=== PATIENT | female | born 1955 ===

== ENCOUNTER 2018-02-05 18:11 | Emergency (ER) | payer OTHER ==
[~2018-02-05] VITALS: Ht 157.5 cm; Wt 69.5 kg
[2018-02-05 18:23] VITALS: TEMP 37; Ht 157.5 cm; Wt 69.5 kg
[2018-02-05] MEDS ORDERED: CLONAZEPAM 0.5 MG TAB PO STA (18:30)
[2018-02-05] MEDS ORDERED: AMLODIPINE BESYLATE 5 MG TAB PO ONE (18:30)
--- NOTE | 2018-02-05 18:35 | EMERGENCY ROOM VISIT NOTE ---
History Report prepared by Imelda: Sybil Ferraro Under the Supervision of: Dr. Magaly Xiong D.O. First contact with patient: 18:16 Stated Complaint: ALCOHOL History of Present Illness The patient is a 63 year old female who presents to the Emergency Room with complaints of worsening anxiety that started several hours ago. The patient reports she was getting on a bus to [employer] for her daughter's graduation and she felt her anxiety start to come on. She states she has a history of anxiety and depression and is on medications. The patient notes she also takes blood pressure medication. She states she did not take her anxiety or blood pressure medication before leaving her house this morning. She states she did not have a racing heart or palpitation while she was having anxiety. She notes she has been on blood pressure medication for several years now. The patient reports she drank alcohol to try and calm her anxiety. She notes she is dizzy and light headed. She reports she did not fall, black out, or pass out. She states she just got over a cold. She denies a history of CHF. The patient notes she has a kidney stone but does not have kidney failure. Pt denies headache, change in vision, fevers, chest pain, shortness of breath, nausea, vomiting, diarrhea, pain with urination, and melena. Source of History: patient Onset: several hours ago Position: other (global) Timing: worsening Associated Symptoms: No fevers, No headache, No chest pain, No SOB, No nausea, No vomiting, No melena, No diarrhea, No urinary symptoms Note: Dizzy, light headed. Review of Systems See HPI for pertinent positives & negatives. A total of 10 systems reviewed and were otherwise negative. Past Medical & Surgical Hypertension, anxiety, depression, kidney stone. Family History FHx: hypertension Social History Alcohol Use: occasionally Housing Status: lives with family Current/Historical Medications Scheduled Amlodipine (Norvasc), Unknown Dose PO DAILY Valsartan (Diovan), Unknown Dose PO DAILY Zolpidem Tartrate (Ambien), 5 MG PO HS Scheduled PRN Clonazepam (Klonopin), 0.5 MG PO DIRECTED PRN for Anxiety Dicyclomine Hcl (Dicyclomine Hcl), 20 MG PO Q6H PRN for STOMACH PAIN Allergies Coded Allergies: Cimetidine (Unverified Allergy, Unknown, UNKNOWN, 02/05/18) Orlistat (Unverified Allergy, Unknown, UNKNOWN, 02/05/18) Physical Exam Vital Signs Date Time Temp Pulse Resp B/P (MAP) Pulse Ox O2 Delivery O2 Flow Rate FiO2 02/05/18 19:24 78 20 146/104 98 Room Air 02/05/18 18:23 37.0 82 18 150/99 97 Room Air 174/113 Physical Exam GENERAL: alert, anxious appear, tearful, well nourished. EYE EXAM: normal conjunctiva, PERRL and EOM's grossly intact OROPHARYNX: no exudate, no erythema, lips, buccal mucosa, and tongue normal and mucous membranes are moist NECK: supple, no nuchal rigidity, no adenopathy, non-tender LUNGS: Clear to auscultation. Normal chest wall mechanics HEART: no murmurs, S1 normal and S2 normal ABDOMEN: abdomen soft, non-tender, normo-active bowel sounds, no masses, no rebound or guarding. BACK: Back is symmetrical on inspection and there is no deformity, no midline tenderness, no CVA tenderness. SKIN: no rashes and no bruising UPPER EXTREMITIES: upper extremities are grossly normal. LOWER EXTREMITIES: No pitting edema. NEURO EXAM: Normal sensorium, cranial nerves II-XII [grossly] intact, normal speech, no [gross] weakness of arms, no [gross] weakness of legs. Difficulty with finger to nose bilaterally. Medical Decision & Procedures Laboratory Results 02/05/18 16:40 Red Blood Count 4.47, Mean Corpuscular Volume 89.7, Mean Corpuscular Hemoglobin 31.8, Mean Corpuscular Hemoglobin Concent 35.4, Mean Platelet Volume 8.8, Neutrophils (%) (Auto) 65.3, Lymphocytes (%) (Auto) 29.4, Monocytes (%) (Auto) 4.4, Eosinophils (%) (Auto) 0.0, Basophils (%) (Auto) 0.6, Neutrophils # (Auto) 4.15, Lymphocytes # (Auto) 1.87, Monocytes # (Auto) 0.28, Eosinophils # (Auto) 0.00, Basophils # (Auto) 0.04 02/05/18 16:40 Test 02/05/18 16:40 White Blood Count 6.36 K/uL (4.8-10.8) Red Blood Count 4.47 M/uL (4.2-5.4) Hemoglobin 14.2 g/dL (12.0-16.0) Hematocrit 40.1 % (37-47) Mean Corpuscular Volume 89.7 fL (80-100) Mean Corpuscular Hemoglobin 31.8 pg (25-34) Mean Corpuscular Hemoglobin Concent 35.4 g/dl (32-36) Platelet Count 311 K/uL (130-400) Mean Platelet Volume 8.8 fL (7.4-10.4) Neutrophils (%) (Auto) 65.3 % Lymphocytes (%) (Auto) 29.4 % Monocytes (%) (Auto) 4.4 % Eosinophils (%) (Auto) 0.0 % Basophils (%) (Auto) 0.6 % Neutrophils # (Auto) 4.15 K/uL (1.4-6.5) Lymphocytes # (Auto) 1.87 K/uL (1.2-3.4) Monocytes # (Auto) 0.28 K/uL (0.11-0.59) Eosinophils # (Auto) 0.00 K/uL (0-0.5) Basophils # (Auto) 0.04 K/uL (0-0.2) RDW Standard Deviation 42.5 fL (36.4-46.3) RDW Coefficient of Variation 13.0 % (11.5-14.5) Immature Granulocyte % (Auto) 0.3 % Immature Granulocyte # (Auto) 0.02 K/uL (0.00-0.02) Anion Gap 5.0 mmol/L (3-11) Est Creatinine Clear Calc Drug Dose 49.8 ml/min Estimated GFR () 64.4 Estimated GFR (Non- 55.6 BUN/Creatinine Ratio 15.2 (10-20) Calcium Level 9.2 mg/dl (8.5-10.1) Magnesium Level 2.4 mg/dl (1.8-2.4) Total Bilirubin 0.4 mg/dl (0.2-1) Aspartate Amino Transf (AST/SGOT) 16 U/L (15-37) Alanine Aminotransferase (ALT/SGPT) 19 U/L (12-78) Alkaline Phosphatase 121 U/L (45-117) Total Protein 8.7 gm/dl (6.4-8.2) Albumin 4.4 gm/dl (3.4-5.0) Globulin 4.3 gm/dl (2.5-4.0) Albumin/Globulin Ratio 1.0 (0.9-2) Ethyl Alcohol mg/dL 224.0 mg/dl (0-3) Laboratory results per my review. Medications Administered Medications (Trade) Dose Ordered Sig/Mimi Route Start Time Stop Time Status Last Admin Dose Admin Amlodipine Besylate (Norvasc Tab) 5 mg NOW ONCE PO 02/05/18 18:30 02/05/18 18:31 DC 02/05/18 18:46 5 MG Clonazepam (Klonopin Tab) 0.5 mg NOW STAT PO 02/05/18 18:30 02/05/18 18:31 DC 02/05/18 18:46 0.5 MG ECG Per My Interpretation Indication: other (hypertension) Rate (beats per minute): 73 Rhythm: normal sinus Findings: no acute ischemic change, no ectopy, other (isolated inverted t wave in lead 3) ED Course 1815: The patient was evaluated in room A4B. A complete history and physical exam was performed. 1829: Klonopin Tab 0.5 mg PO, Norvasc Tab 5 mg PO. 1927: I rechecked the patient and her blood pressure has gone down. She states she feels better. The patient will be discharged home. Medical Decision Differential diagnosis: Etiologies such as toxicologic, infection, hypoglycemia, electrolyte abnormalities, cardiac sources, intracerebral event, neurologic, as well as others were entertained. Patient anxious appearing here, initially very hypertensive but this improved spontaneously even prior to administration of medications. Patient given 2 of her home vacations that she normally would have taken. Patient found to be intoxicated. By time of discharge was clinically sober, ambulate with a steady gait, no slurred speech. Patient concerned about making her best to get back to [place] where she lives. Discussed with patient need for compliance in taking her medications at all times. Discussed not using alcohol as a coping strategy when you miss her medications or her having an anxiety attack. Patient denies SI. Patient's blood pressure continue to improve and patient felt well after taking her usual home medications. Patient's anxiety was improved and she was no longer tearful. Patient's son was with her throughout and is accompanying her home on the bus trip back to [place]. Discussed with her close follow-up with her family doctor as a precaution, symptoms to watch and return for, patient and son verbalized understanding were agreeable with plan. I do not suspect hypertensive urgency/emergency, ACS, CVA, dissection, occult infectious etiology, nephrotic syndrome. Patient here initially with hypertension more likely from missing her usual medications as well as her anxiety. Medication Reconcilliation Current Medication List: was personally reviewed by me Blood Pressure Screening Patient's blood pressure: Elevated blood pressure Blood pressure disposition: Referred to PCP Impression Primary Impression: Anxiety Additional Impressions: Hypertension Alcohol intoxication Scribe Attestation The scribe's documentation has been prepared under my direction and personally reviewed by me in its entirety. I confirm that the note above accurately reflects all work, treatment, procedures, and medical decision making performed by me. Departure Information Dispostion Home / Self-Care Additional Instructions Please take your medications as prescribed. Please drink alcohol cautiously as it may contribute to other reactions or interactions with medications. Please make sure you are drinking plenty of water. Please exercise caution to avoid any falls particularly while you are still intoxicated. If you have any new or concerning symptoms including chest pain, palpitations, headaches, dizziness, vomiting, difficulty walking, numbness or tingling, you have any other new concerns, please return the emergency room. Problem Qualifiers Additional Impressions: Hypertension Hypertension type: essential hypertension Qualified Codes: I10 - Essential ( primary) hypertension Alcohol intoxication Complication of substance-induced condition: uncomplicated Qualified Codes: F10.920 - Alcohol use, unspecified with intoxication, uncomplicated
[2018-02-05] MEDS ORDERED: CLON0.5T3 PO (18:50)
[2018-02-05] MEDS ORDERED: VALS40TA2 PO (18:50)
[2018-02-05] MEDS ORDERED: ZOLP5TAB PO (18:50)
[2018-02-05] MEDS ORDERED: DICY20TA10 PO (18:50)
[2018-02-05] MEDS ORDERED: AMLO2.5T PO (18:50)
[2018-02-05 18:55] LABS: BASO % 0.6 %; BASO ABS # 0.04 K/uL (0-0.2); HEMATOCRIT 40.1 % (37-47); HEMOGLOBIN 14.2 g/dL (12.0-16.0); IG# 0.02 K/uL (0.00-0.02); LYMPH % 29.4 %; LYMPH ABS # 1.87 K/uL (1.2-3.4); MEAN CELL VOLUME 89.7 fL (80-100); MEAN CORPUSCULAR HEMOGLOBIN 31.8 pg (25-34); MEAN CORPUSCULAR HGB CONC 35.4 g/dl (32-36); MEAN PLATELET VOLUME 8.8 fL (7.4-10.4); MONO % 4.4 %; MONO ABS # 0.28 K/uL (0.11-0.59); NEUT % 65.3 %; NEUT ABS # 4.15 K/uL (1.4-6.5); PLATELET COUNT 311 K/uL (130-400); RED CELL DISTRIBUTION WIDTH SD 42.5 fL (36.4-46.3); WHITE BLOOD COUNT 6.36 K/uL (4.8-10.8)
[2018-02-05 19:15] LABS: ALBUMIN 4.4 gm/dl (3.4-5.0); CALCIUM 9.2 mg/dl (8.5-10.1); CREATININE 1.07 mg/dl (0.60-1.20); POTASSIUM 3.8 mmol/L (3.5-5.1)
[2018-02-05 19:18] LABS: TOTAL PROTEIN 8.7 gm/dl (6.4-8.2)
[2018-02-05 19:24] VITALS: BP 146/104; PULSE 78; O2SAT 98
== END 2018-02-05 19:37 | disposition home or self-care (01) ==
LOC: EDBD 18:11 → C.EDA 18:14
DX: F41.9 Anxiety disorder, unspecified (principal); I10 Essential (primary) hypertension; F10.920 Alcohol use, unspecified with intoxication, uncomplicated; Z79.899 Other long term (current) drug therapy; Z88.8 Allergy status to other drugs, medicaments and biological substances